=== PATIENT | female | born 1965 | race Caucasian/White ===

== ENCOUNTER 2017-02-07 02:13 | Inpatient (IN) | payer OTHER ==
[~2017-02-07] VITALS: Ht 162.6 cm; Wt 94.8 kg
[2017-02-07 03:08] LABS: BASOPHIL % 0.1 % (0-2); PLATELET COUNT 305 x10^3mcL (130-400); RED CELL DISTRIBUTION WIDTH 13.6 % (11.5-14.5)
[2017-02-07 03:30] LABS: CALCIUM 9.2 mg/dL (8.5-10.1); CARBON DIOXIDE 31.1 mmol/L (21-32); CHLORIDE SERUM 101 mmol/L (98-107); CREATININE SERUM 0.9 mg/dL (0.6-1.0); GFR1 > 60 mL/min; GLUCOSE SERUM 176 mg/dL (74-106); POTASSIUM SERUM 3.8 mmol/L (3.5-5.1); SODIUM SERUM 141 mmol/L (136-145)
[2017-02-07] MEDS ORDERED: NAPROXEN375 MG PO (03:32)
[2017-02-07 03:35] LABS: ALBUMIN 3.8 g/dL (3.4-5.0); ALKALINE PHOSPHATASE 63 U/L (46-116); ALT/SGPT 136 U/L (14-59); AST/SGOT 158 U/L (15-37); TOTAL PROTEIN, SERUM 7.4 g/dL (6.4-8.2)
[2017-02-07 04:13] LABS: LIPASE 47335 IU/L (73-393)
[2017-02-07 04:32] VITALS: BP 155/83
[2017-02-07 04:50] LABS: T3 TOTAL 1.3 ng/mL
[2017-02-07 05:05] LABS: FREE T4 1.16 ng/dL (0.76-1.46); FREE THYROXINE INDEX 3.9 ug/dL (1.4-4.5); T4(THYROXINE) 11.1 ug/dL (4.7-13.3)
[2017-02-07 05:17] LABS: microscopic required? YES; urine erythrocyte NEGATIVE (NEGATIVE)
[2017-02-07 05:19] LABS: MAGNESIUM 1.7 mg/dL (1.8-2.4); PHOSPHOROUS 2.8 mg/dL (2.5-4.9)
[2017-02-07 05:26] LABS: CHOLESTEROL/HDL RATIO 4.2
[2017-02-07 12:26] VITALS: BP 148/92
[2017-02-07 16:28] VITALS: BP 148/82
[2017-02-07 20:05] VITALS: BP 122/74
[2017-02-08 05:42] VITALS: BP 114/64
[2017-02-08 06:45] LABS: BASOPHIL % 0.1 % (0-2); PLATELET COUNT 250 x10^3mcL (130-400); RED CELL DISTRIBUTION WIDTH 13.9 % (11.5-14.5)
[2017-02-08 06:47] LABS: CALCIUM 8.1 mg/dL (8.5-10.1); CARBON DIOXIDE 28.1 mmol/L (21-32); CHLORIDE SERUM 104 mmol/L (98-107); CREATININE SERUM 0.5 mg/dL (0.6-1.0); GFR1 > 60 mL/min; GLUCOSE SERUM 119 mg/dL (74-106); MAGNESIUM 2.1 mg/dL (1.8-2.4); POTASSIUM SERUM 4.1 mmol/L (3.5-5.1); SODIUM SERUM 137 mmol/L (136-145)
[2017-02-08 08:13] LABS: AMYLASE 809 U/L (25-115)
[2017-02-08 08:14] LABS: LIPASE 6288 IU/L (73-393)
[2017-02-08 09:36] VITALS: BP 116/70
[2017-02-08 10:44] LABS: BILIRUBIN DIRECT 0.07 mg/dL (0.0-0.2); BILIRUBIN TOTAL 0.46 mg/dL (0.20-1.00)
[2017-02-08 10:46] LABS: ALBUMIN 2.7 g/dL (3.4-5.0); TOTAL PROTEIN, SERUM 5.9 g/dL (6.4-8.2)
[2017-02-08 13:44] VITALS: BP 102/57
[2017-02-08 17:37] VITALS: BP 100/54
[2017-02-08 20:43] VITALS: BP 104/58
[2017-02-09 04:17] VITALS: BP 98/57
[2017-02-09 06:30] VITALS: BP 112/54
[2017-02-09 06:50] LABS: BASOPHIL % 0.2 % (0-2); PLATELET COUNT 222 x10^3mcL (130-400); RED CELL DISTRIBUTION WIDTH 13.6 % (11.5-14.5)
[2017-02-09 07:22] LABS: ALBUMIN 2.3 g/dL (3.4-5.0); ALKALINE PHOSPHATASE 55 U/L (46-116); ALT/SGPT 40 U/L (14-59); AMYLASE 356 U/L (25-115); AST/SGOT 17 U/L (15-37); BILIRUBIN DIRECT 0.15 mg/dL (0.0-0.2); BILIRUBIN TOTAL 0.5 mg/dL (0.20-1.00); CALCIUM 8.1 mg/dL (8.5-10.1); CHLORIDE SERUM 107 mmol/L (98-107); CREATININE SERUM 0.8 mg/dL (0.6-1.0); GFR1 > 60 mL/min; GLUCOSE SERUM 116 mg/dL (74-106); PHOSPHOROUS 2.4 mg/dL (2.5-4.9); POTASSIUM SERUM 3.9 mmol/L (3.5-5.1); SODIUM SERUM 141 mmol/L (136-145); TOTAL PROTEIN, SERUM 5.6 g/dL (6.4-8.2)
[2017-02-09 13:55] VITALS: BP 115/82
[2017-02-09 17:25] VITALS: BP 136/83
[2017-02-09 21:09] VITALS: BP 149/87
[2017-02-10] VITALS (12 sets, daily range): BP systolic 105–151; BP diastolic 66–90
[2017-02-10 07:02] LABS: BASOPHIL % 0.3 % (0-2); PLATELET COUNT 244 x10^3mcL (130-400); RED CELL DISTRIBUTION WIDTH 13.7 % (11.5-14.5)
[2017-02-10 07:30] LABS: AMYLASE 103 U/L (25-115); CALCIUM 8.4 mg/dL (8.5-10.1); CARBON DIOXIDE 28.3 mmol/L (21-32); CHLORIDE SERUM 108 mmol/L (98-107); CREATININE SERUM 0.5 mg/dL (0.6-1.0); GFR1 > 60 mL/min; GLUCOSE SERUM 114 mg/dL (74-106); LIPASE 214 IU/L (73-393); PHOSPHOROUS 1.8 mg/dL (2.5-4.9); POTASSIUM SERUM 3.9 mmol/L (3.5-5.1); SODIUM SERUM 144 mmol/L (136-145)
[2017-02-11 06:05] VITALS: BP 142/80
[2017-02-11 06:14] LABS: BASOPHIL % 0.1 % (0-2); PLATELET COUNT 253 x10^3mcL (130-400); RED CELL DISTRIBUTION WIDTH 13.4 % (11.5-14.5)
[2017-02-11 06:32] LABS: CALCIUM 8.6 mg/dL (8.5-10.1); CARBON DIOXIDE 29.3 mmol/L (21-32); CHLORIDE SERUM 103 mmol/L (98-107); CREATININE SERUM 0.6 mg/dL (0.6-1.0); GFR1 > 60 mL/min; GLUCOSE SERUM 122 mg/dL (74-106); PHOSPHOROUS 1.7 mg/dL (2.5-4.9); POTASSIUM SERUM 4.4 mmol/L (3.5-5.1); SODIUM SERUM 137 mmol/L (136-145)
[2017-02-11 09:30] VITALS: BP 109/79
[2017-02-11 17:12] VITALS: BP 111/71
[2017-02-11 22:50] VITALS: BP 118/75
[2017-02-12 05:02] VITALS: BP 113/63
[2017-02-12 06:23] LABS: BASOPHIL % 0.2 % (0-2); PLATELET COUNT 281 x10^3mcL (130-400); RED CELL DISTRIBUTION WIDTH 13.3 % (11.5-14.5)
[2017-02-12 06:46] LABS: CALCIUM 8.6 mg/dL (8.5-10.1); CARBON DIOXIDE 30.4 mmol/L (21-32); CHLORIDE SERUM 104 mmol/L (98-107); CREATININE SERUM 0.6 mg/dL (0.6-1.0); GFR1 > 60 mL/min; GLUCOSE SERUM 116 mg/dL (74-106); PHOSPHOROUS 2.6 mg/dL (2.5-4.9); POTASSIUM SERUM 4.6 mmol/L (3.5-5.1); SODIUM SERUM 141 mmol/L (136-145)
[2017-02-12 10:11] VITALS: BP 129/70
[2017-02-12 13:15] VITALS: BP 129/70
[2017-02-12] MEDS ORDERED: LIPI10 PO (13:25)
[2017-02-12] MEDS ORDERED: NAPROXEN375 MG PO (13:29)
[2017-02-12 13:48] VITALS: Ht 162.6 cm; Wt 94.8 kg
[2017-02-12 14:06] VITALS: BP 125/77
== END 2017-02-12 15:00 | disposition home or self-care (01) | DRG 263 ==
LOC: ED 02:13 → DU 03:55 → MU 03:55 → DU 04:20 → MU 02-09 17:43 → DU 02-11 23:53
PROVIDERS: Emergency Medicine; Internal Medicine Gastroenterology; Surgery; ADMIT Family Medicine
PROC: BF10YZZ Fluoroscopy of Bile Ducts using Other Contrast (ICD-10-PCS; 2017-02-09)
PROC: 0FT44ZZ Resection of Gallbladder, Percutaneous Endoscopic Approach (ICD-10-PCS; principal; 2017-02-09 08:00)
DX: K80.00 Calculus of gallbladder with acute cholecystitis without obstruction (principal); N17.0 Acute kidney failure with tubular necrosis; E43 Unspecified severe protein-calorie malnutrition; R18.8 Other ascites; K85.10 Biliary acute pancreatitis without necrosis or infection; K59.00 Constipation, unspecified; R73.03 Prediabetes; R74.0 Nonspecific elevation of levels of transaminase and lactic acid dehydrogenase [LDH]; E66.9 Obesity, unspecified; Z68.35 Body mass index [BMI] 35.0-35.9, adult; Z98.51 Tubal ligation status; Z83.3 Family history of diabetes mellitus; Z82.49 Family history of ischemic heart disease and other diseases of the circulatory system
CPT/HCPCS: 83880; 84439; 94150; C1887; C9113; J0330; J0500; J0696; J1170; J1885; J1940; J2250; J2270; J2405; J2543; J2704; J2710; J3010; J3475; J3490; J7030; J7120; Q0092; Q9967